=== PATIENT | female | born 1990 | race Caucasian/White ===

== ENCOUNTER 2017-02-25 17:30 | Emergency (ER) | payer MEDICAID ==
--- NOTE | 2017-02-25 18:08 | Emergency Department Record ---
History of Present Illness - General Chief complaint: Extremity Problem Stated complaint: POSS BROKEN KNUCKLE (LT HAND) Time Seen by Provider: 02/25/17 17:54 Source: Patient Mode of Arrival: Ambulatory Limitations: No limitations - History of Present Illness Initial comments: 26 yo female presents with left hand pain. The hand/finger was pulled backward injuring her ring finger. No deformity. She is left handed. No break in the skin. MD Complaint: Extremity pain, Joint pain Onset/Timin -: Minutes(s) Location: Left, Hand History of Same: No Radiation: Proximal, Distal Severity scale (1-10): 8 Quality: Aching Consistency: Constant Improves with: Rest Worsens with: Exertion, Palpation - Related Data Home Medications Medication Instructions Recorded Confirmed Last Taken Aripiprazole [Abilify] 10 mg PO DAILY 03/02/16 02/25/17 1 Day Ago ~02/24/17 Citalopram Hydrobromide [Celexa] 40 mg PO DAILY 03/02/16 02/25/17 1 Day Ago ~02/24/17 Allergies Allergy/AdvReac Type Severity Reaction Status Date / Time aspirin Allergy Severe NAUSEA AND Verified 02/25/17 17:52 VOMITING Travel Screening - Travel/Exposure Within Last 30 Days Have you traveled within the last 30 days?: No - Travel/Exposure Within Last Year Have you traveled outside the [place] in the last year?: No - Additonal Travel Details Have you been exposed to anyone with a communicable illness?: No - Travel Symptoms Symptom Screening: None Review of Systems Constitutional: Denies: Chills, Fever, Malaise, Weakness Eyes: Denies: Eye discharge ENT: Denies: Congestion, Throat pain Respiratory: Denies: Cough Cardiovascular: Denies: Chest pain, Syncope Endocrine: Denies: Fatigue Gastrointestinal: Denies: Abdominal pain, Diarrhea, Nausea, Vomiting Genitourinary: Denies: Dysuria Musculoskeletal: Reports: As per HPI, Arthralgia Skin: Reports: Bruising Neurological: Denies: Headache Psychiatric: Denies: Anxiety Hematological/Lymphatic: Denies: Easy bleeding, Easy bruising, Swollen glands Past Medical History - SOCIAL HISTORY Smoking Status: Current every day smoker Alcohol Use: Occasional Drug Use: None - RESPIRATORY Hx Respiratory Disorders: Yes Hx Asthma: Yes - CARDIOVASCULAR Hx Cardio Disorders: Yes Hx Hypotension: Yes - NEURO Hx Neuro Disorders: Yes Hx Seizures: Yes - GI Hx GI Disorders: No - Hx Genitourinary Disorders: No - ENDOCRINE Hx Endocrine Disorders: No Hx Thyroid Disease: No Comment:: hypoglycemic - MUSCULOSKELETAL Hx Musculoskeletal Disorders: No - PSYCH Hx Psych Problems: Yes Hx Anxiety: Yes Hx Behavior Problems: Yes (borderline personality disorder) Hx Depression: Yes - HEMATOLOGY/ONCOLOGY Hx Hematology/Oncology Disorders: No Family Medical History Any Significant Family History?: Yes Hx Cancer: Mother, Grandparents Hx Heart Disease: Grandparents Physical Exam - General General Appearance: Alert, Oriented x3, Cooperative, No acute distress Limitations: No limitations - Head Head exam: Atraumatic, Normal inspection - Eye Eye exam: Normal appearance - ENT ENT exam: Normal exam Ear exam: Normal external inspection Nasal Exam: Normal inspection - Neck Neck exam: Normal inspection - Cardiovascular Cardiovascular Exam: Regular rate, Normal rhythm, Normal heart sounds Peripheral Pulses: 2+: Radial (L) - Rectal Rectal exam: Deferred - exam: Deferred - Extremities Extremities exam: Joint swelling, Normal capillary refill, Tenderness. negative : Normal inspection (bruising over the 4th digit proximal), Full ROM (limited ring finger due to pain) Image of Hand: 1 - tender, faint bruising - Neurological Neurological exam: Alert, Oriented X3 - Psychiatric Psychiatric exam: Normal affect, Normal mood - Skin Skin exam: Dry, Intact, Normal color, Warm Course Vital Signs 02/25/17 17:47 Temperature 97.5 F L Pulse Rate 71 Respiratory 16 Rate Blood Pressure 110/58 Pulse Ox 100 - Reevaluation(s) Reevaluation #1: 02/25/17 18:23 The L hand XR was reviewed The patient was informed She was provided a splint and given instructions for home care and follow up Disposition Disposition: Discharge Clinical Impression: Strain of finger of left hand Disposition: Home, Self-Care Condition: (1) Good Instructions: Hand Sprain (ED) Additional Instructions: Use the splint for support and comfort Follow up with your doctor in a week if any pain continues Ice to minimize swelling Forms: Patient Portal Access Time of Disposition: 18:34 Quality - Quality Measures Quality Measures: N/A - Blood Pressure Screening View Details: Yes Blood Pressure Classification: Normal BP Reading Systolic Measurement: 110 Diastolic Measurement: 58 Screening for High Blood Pressure: < Normal BP, F/U Not Required > [G8783] Normal BP Follow-up Interventions: No follow-up required
[2017-02-25] MEDS: IBUPROFEN 600 MG TABLET PO ONE (18:24)
--- NOTE | 2017-02-26 14:34 | RADIOLOGY REPORT ---
EXAM: LEFT HAND HISTORY: INJURY. TECHNIQUE: Three views of the left hand were obtained. Comparison: None. FINDINGS: Negative for fracture or dislocation. The soft tissues are unremarkable. The joint spaces are preserved. IMPRESSION: NEGATIVE LEFT HAND EXAMINATION. JOB NUMBER: [id number] MTDD
== END 2017-02-25 18:40 | disposition home or self-care (01) ==
LOC: ER 17:30
DX: S63.615A Unspecified sprain of left ring finger, initial encounter (principal); X50.0XXA Overexertion from strenuous movement or load, initial encounter
CPT/HCPCS: 99283

== ENCOUNTER 2017-03-12 19:16 | Emergency (ER) | payer MEDICAID ==
--- NOTE | 2017-03-12 19:25 | Emergency Department Record ---
History of Present Illness - General Chief Complaint: Headache Migraine Stated Complaint: TORRES Time Seen by Provider: 03/12/17 19:19 Source: Patient Mode of Arrival: Ambulatory Limitations: No limitations - History of Present Illness Initial Comments: 26 yo female presents with a headache for three days. She reports headaches similar over the last year. The onset is typically gradual with some light and noise sensitivity. No current vomiting. No vision changes, speech changes, coordination changes, memory changes, numbness/tingling. She has been seeing her doctor for possible migraines. No sudden or maximal at onset. MD Complaint: Headache -: Days(s) (3) Onset Description: Gradual Location: Frontal Severity: Moderate Quality: Aching Consistency: Intermittent Improves With: Nothing Worsens With: Light, Noise Associated Symptoms: Nausea, Photophobia Treatments Prior to Arrival: Acetaminophen, Ibuprofen - Symptoms of Stroke Baseline State: Baseline State - Related Data Home Medications Medication Instructions Recorded Confirmed Last Taken Aripiprazole [Abilify] 10 mg PO DAILY 03/02/16 03/12/17 1 Day Ago ~02/24/17 Citalopram Hydrobromide [Celexa] 40 mg PO DAILY 03/02/16 03/12/17 1 Day Ago ~02/24/17 Allergies Allergy/AdvReac Type Severity Reaction Status Date / Time aspirin Allergy Severe NAUSEA AND Verified 02/25/17 17:52 VOMITING Review of Systems Constitutional: Denies: Chills, Fever, Malaise, Weakness Eyes: Denies: Eye discharge ENT: Denies: Congestion, Throat pain Respiratory: Denies: Cough Cardiovascular: Reports: Syncope (History of in the past, none recently). Denies: Chest pain Endocrine: Denies: Fatigue Gastrointestinal: Reports: Nausea. Denies: Abdominal pain, Diarrhea, Vomiting Genitourinary: Denies: Dysuria, Urgency Musculoskeletal: Denies: Arthralgia, Back pain, Myalgia, Neck pain Skin: Denies: Bruising, Change in color, Rash Neurological: Reports: As per HPI, Headache. Denies: Abnormal gait, Confusion, Numbness, Paresthesias, Tingling, Tremors, Vertigo, Weakness Psychiatric: Reports: Anxiety Hematological/Lymphatic: Denies: Blood Clots, Easy bleeding, Easy bruising, Swollen glands Past Medical History - SOCIAL HISTORY Smoking Status: Current every day smoker Drug Use: None - RESPIRATORY Hx Respiratory Disorders: Yes Hx Asthma: Yes - CARDIOVASCULAR Hx Cardio Disorders: Yes Hx Hypotension: Yes - NEURO Hx Neuro Disorders: Yes Hx Seizures: Yes - GI Hx GI Disorders: No - Hx Genitourinary Disorders: No - ENDOCRINE Hx Endocrine Disorders: No Hx Thyroid Disease: No Comment:: hypoglycemic - MUSCULOSKELETAL Hx Musculoskeletal Disorders: No - PSYCH Hx Psych Problems: Yes Hx Anxiety: Yes Hx Behavior Problems: Yes (borderline personality disorder) Hx Depression: Yes - HEMATOLOGY/ONCOLOGY Hx Hematology/Oncology Disorders: No Family Medical History Hx Cancer: Mother, Grandparents Hx Heart Disease: Grandparents Physical Exam - General General Appearance: Alert, Oriented x3, Cooperative, No acute distress Limitations: No limitations - Head Head exam: Atraumatic, Normocephalic, Normal inspection Head exam detail: negative: Abrasion, Contusion, Hematoma - Eye Eye exam: Normal appearance, PERRL, EOMI. negative: Conjunctival injection, Nystagmus, Periorbital swelling Pupils: Normal accommodation. negative: Irregular, Unequal - ENT ENT exam: Normal exam, Mucous membranes moist Ear exam: Normal external inspection Nasal Exam: Normal inspection Mouth exam: Normal external inspection Teeth exam: Normal inspection Throat exam: Normal inspection. negative: Tonsillar erythema, Tonsillomegaly, Tonsillar exudate, R peritonsillar mass, L peritonsillar mass - Neck Neck exam: Normal inspection, Full ROM. negative: Lymphadenopathy, Meningismus , Tenderness, Thyromegaly - Respiratory Respiratory exam: Normal lung sounds bilaterally. negative: Prolonged expiratory, Respiratory distress, Rhonchi, Stridor - Cardiovascular Cardiovascular Exam: Regular rate, Normal rhythm, Normal heart sounds Peripheral Pulses: 2+: Radial (R), Radial (L) - GI/Abdominal GI/Abdominal exam: Soft. negative: Tenderness - Rectal Rectal exam: Deferred - exam: Deferred - Extremities Extremities exam: Normal inspection, Full ROM, Normal capillary refill. negative: Pedal edema, Tenderness - Back Back exam: Reports: Normal inspection, Full ROM. Denies: CVA tenderness (R), CVA tenderness (L), Muscle spasm, Rash noted, Tenderness - Neurological Neurological exam: Alert, CN II-XII intact, Normal gait, Oriented X3, Reflexes normal, Other (Normal FTN, Normal PND upper and lower extremities). negative: Abnormal gait, Altered, Motor sensory deficit - Psychiatric Psychiatric exam: Normal affect, Normal mood - Skin Skin exam: Dry, Intact, Normal color, Warm Course Vital Signs 03/12/17 19:21 Temperature 99.1 F Pulse Rate [ 87 Pulse Ox Probe] Respiratory 20 Rate Blood Pressure 115/49 [Left Arm] Pulse Ox 99 - Reevaluation(s) Reevaluation #1: The neuro examination is normal as tested Similar to prior headaches with features typical of migraine The patient is being followed by her PCP with further follow up scheduled Friday03/12/17 19:45 Reevaluation #2: The headache is completely gone She feels a littel jittery from the Reglan I offered additional Benadryl She declined I explained that she may benefit from an oral dose at home She was reassured the sensation will wear off and she can return at any time if the jittery feeling persists. Her headache is 0/10 at this time. 03/12/17 20:08 Disposition Disposition: Discharge Clinical Impression: Headache Qualifiers: Headache type: unspecified Headache chronicity pattern: acute headache Intractability: not intractable Qualified Code(s): R51 - Headache Disposition: Home, Self-Care Condition: (1) Good Instructions: Migraine Headache (ED), Acute Headache (ED) Additional Instructions: Follow up with Dr Simmons as schedules Rest and stay well hydrated Return if you have any return or symptoms or any new features to your headaches Forms: Patient Portal Access Time of Disposition: 20:08 Quality - Quality Measures Quality Measures: N/A - Blood Pressure Screening View Details: Yes Does Patient Have Any of the Following: No Blood Pressure Classification: Normal BP Reading Systolic Measurement: 114 Diastolic Measurement: 69 Screening for High Blood Pressure: < Normal BP, F/U Not Required > [G8783]
[2017-03-12] MEDS ORDERED: HYDROCODONE/APAP 5/325MG TABLET PO ONE (19:32)
[2017-03-12] MEDS: 0.9 % SODIUM CHLORIDE 1,000 ML BAG IV ONE (19:53)
[2017-03-12] MEDS: DIPHENHYDRAMINE HCL IV 50 MG/ML VIAL IVP ONE (19:54)
[2017-03-12] MEDS: METOCLOPRAMIDE HCL 10 MG/2 ML VIAL IVP ONE (19:54)
[2017-03-12] MEDS: KETOROLAC 30 MG/ML VIAL IVP ONE (19:54)
== END 2017-03-12 20:10 | disposition home or self-care (01) ==
LOC: ER 19:16
DX: R51 Headache (principal); H53.149 Visual discomfort, unspecified; R11.0 Nausea
CPT/HCPCS: 99284 ×2; 96374; 96375; J1885; J1200; J2765; J7030

== ENCOUNTER 2018-01-11 03:45 | Emergency (ER) | payer MEDICAID ==
--- NOTE | 2018-01-11 03:49 | Emergency Department Record ---
History of Present Illness - General Chief Complaint: Neck Injury/Pain Stated Complaint: NECK PAIN Source: Patient - History of Present Illness Initial Comments: The patient states that she slept wrong on her neck last night and now it hurts on the right side, down to the top of her shoulder. She denies injury or trauma of any kind. She states this has happened in the past but it has usually resolved throughout the day. Tonight the ultram she took didn't help so she came here for pain control. Patient has had a tubal ligation. Her LMP began 10 days ago and ended 4 days ago. Complaint: Neck pain - Related Data Home Medications Medication Instructions Recorded Confirmed Last Taken Ranitidine HCl [Zantac] 150 mg PO TID 01/11/18 01/11/18 Unknown Previous Rx's Medication Instructions Recorded Cyclobenzaprine HCl [Flexeril] 10 mg PO TID #14 tablet 01/11/18 Allergies Allergy/AdvReac Type Severity Reaction Status Date / Time aspirin Allergy Severe NAUSEA AND Verified 01/11/18 03:49 VOMITING Review of Systems Reviewed: No additional complaints except as noted below Constitutional: Reports: As per HPI. Denies: Chills, Fever, Malaise, Night sweats, Weakness, Weight change Eyes: Reports: As per HPI. Denies: Eye discharge, Eye pain, Photophobia, Vision change ENT: Reports: As per HPI. Denies: Congestion, Dental pain, Ear pain, Epistaxis , Hearing loss, Throat pain Respiratory: Reports: As per HPI. Denies: Cough, Dyspnea, Hemoptysis, Stridor, Wheezes Cardiovascular: Reports: As per HPI. Denies: Arrhythmia, Chest pain, Dyspnea on exertion, Edema, Murmurs, Orthopnea, Palpitations, Paroxysmal nocturnal dyspnea, Rheumatic Fever, Syncope Endocrine: Reports: As per HPI. Denies: Fatigue, Heat or cold intolerance, Polydipsia, Polyuria Gastrointestinal: Reports: As per HPI. Denies: Abdominal pain, Constipation, Diarrhea, Hematemesis, Hematochezia, Melena, Nausea, Vomiting Genitourinary: Reports: As per HPI. Denies: Abnormal menses, Discharge, Dyspareunia, Dysuria, Frequency, Hematuria, Incontinence, Retention, Urgency Musculoskeletal: Reports: As per HPI. Denies: Arthralgia, Back pain, Gout, Joint swelling, Myalgia, Neck pain Skin: Reports: As per HPI. Denies: Bruising, Change in color, Change in hair/ nails, Lesions, Pruritus, Rash Neurological: Reports: As per HPI. Denies: Abnormal gait, Confusion, Headache, Numbness, Paresthesias, Seizure, Tingling, Tremors, Vertigo, Weakness Psychiatric: Reports: As per HPI. Denies: Anxiety, Auditory hallucinations, Depression, Homicidal thoughts, Suicidal thoughts, Visual hallucinations Hematological/Lymphatic: Reports: As per HPI. Denies: Anemia, Blood Clots, Easy bleeding, Easy bruising, Swollen glands Past Medical History - SOCIAL HISTORY Smoking Status: Current every day smoker Drug Use: None - RESPIRATORY Hx Respiratory Disorders: Yes Hx Asthma: Yes - CARDIOVASCULAR Hx Cardio Disorders: Yes Hx Hypotension: Yes - NEURO Hx Neuro Disorders: Yes Hx Seizures: Yes - GI Hx GI Disorders: No - Hx Genitourinary Disorders: No - ENDOCRINE Hx Endocrine Disorders: No Hx Thyroid Disease: No Comment:: hypoglycemic - MUSCULOSKELETAL Hx Musculoskeletal Disorders: No - PSYCH Hx Psych Problems: Yes Hx Anxiety: Yes Hx Behavior Problems: Yes (borderline personality disorder) Hx Depression: Yes - HEMATOLOGY/ONCOLOGY Hx Hematology/Oncology Disorders: No Family Medical History Hx Cancer: Mother, Grandparents Hx Heart Disease: Grandparents Physical Exam - General General Appearance: Alert, Oriented x3, Cooperative, Moderate distress - Head Head exam: Normal inspection - Eye Eye exam: Normal appearance, PERRL Pupils: Normal accommodation - ENT ENT exam: Normal exam, Mucous membranes moist, Normal external ear exam, Normal orophraynx, TM's normal bilaterally Ear exam: Normal external inspection. negative: External canal tenderness Nasal Exam: Normal inspection. negative: Discharge, Sinus tenderness Mouth exam: Normal external inspection, Tongue normal Teeth exam: Normal inspection. negative: Dental caries Throat exam: Normal inspection. negative: Tonsillar erythema, Tonsillar exudate - Neck Neck exam: Normal inspection, Tenderness (tender muscle spasm to right paracervical, trapezius, flexion intact, lateral motion is painful. No bony tenderness on palpation posteriorly.). negative: Lymphadenopathy, Meningismus - Respiratory Respiratory exam: Normal lung sounds bilaterally. negative: Respiratory distress - Cardiovascular Cardiovascular Exam: Regular rate, Normal rhythm, Normal heart sounds - GI/Abdominal GI/Abdominal exam: Soft, Normal bowel sounds. negative: Tenderness - Rectal Rectal exam: Deferred - exam: Deferred - Extremities Extremities exam: Normal inspection, Full ROM, Normal capillary refill. negative: Tenderness - Back Back exam: Reports: Normal inspection, Full ROM. Denies: Muscle spasm, Rash noted, Tenderness - Neurological Neurological exam: Alert, CN II-XII intact, Normal gait, Oriented X3, Reflexes normal, Other (motor strength to upper extremities equal bilaterally with 2+ equal reflexes bilaterally). negative: Motor sensory deficit - Psychiatric Psychiatric exam: Normal affect, Normal mood - Skin Skin exam: Dry, Intact, Normal color, Warm Course - Reevaluation(s) Reevaluation #1: The patient is feeling much better but is not pain free. 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 She states she will go to her PCP who is a DO and can perform manipulation on her neck. 01/11/18 05:03 Medical Decision Making - Management Options MDM Management: No Additional Work-up Planned Disposition Disposition: Discharge Clinical Impression: Cervical paraspinous muscle spasm Disposition: Home, Self-Care Return To Work/School Note Provided: Yes Instructions: Spasmodic Torticollis (ED), Neck Pain (ED) Additional Instructions: No lifting with arms. Flexeril as directed. Massage followed by gentle ROM three or more times daily. Follow up with PCP this week for recheck. Prescriptions: Cyclobenzaprine HCl [Flexeril] 10 mg PO TID #14 tablet Forms: Patient Portal Access Quality - Quality Measures Quality Measures: N/A - Blood Pressure Screening Does Patient Have Any of the Following: No Blood Pressure Classification: Normal BP Reading Systolic Measurement: 111 Diastolic Measurement: 58 Screening for High Blood Pressure: < Normal BP, F/U Not Required > [G8783]
[2018-01-11] MEDS: KETOROLAC 30 MG/ML VIAL IM ONE (04:06)
[2018-01-11] MEDS: ORPHENADRINE CITRATE 60MG/2ML VIAL IM ONE (04:06)
== END 2018-01-11 05:15 | disposition home or self-care (01) ==
LOC: ER 03:45
DX: G24.3 Spasmodic torticollis (principal); F17.210 Nicotine dependence, cigarettes, uncomplicated; F60.3 Borderline personality disorder; M62.838 Other muscle spasm
CPT/HCPCS: 96372; 99283; J1885; J2360

== ENCOUNTER 2018-10-09 18:40 | Emergency (ER) | payer MEDICAID ==
[2018-10-09] MEDS ORDERED: IBUPROFEN 600 MG TABLET PO ONE (18:54)
--- NOTE | 2018-10-09 19:00 | Emergency Department Record ---
History of Present Illness - General Chief complaint: Lower Extremity Pain Stated complaint: INJURY TO RT LEG Time Seen by Provider: 10/09/18 18:54 Source: Patient Mode of Arrival: Ambulatory Limitations: No limitations - History of Present Illness Initial comments: 28 yo female presents to ED for evaluation following an injury to the right lower leg. Patient reports that she was unloading a washer from a truck that slipped and fell off the truck striking the patient in the proximal 1/3rd of the right lower leg. Patient denies other injury on examination, has not taken anything prior to arrival, and denies health problems at her baseline. Patient denies injury to the knee or to from the ankle distally. MD Complaint: Extremity pain Onset/Timin -: Minutes(s) Location: Right, Lower Leg History of Same: No Severity scale (1-10): 8 Quality: Aching Consistency: Constant Improves with: Nothing Worsens with: Nothing - Related Data Allergies Allergy/AdvReac Type Severity Reaction Status Date / Time aspirin Allergy Severe NAUSEA AND Verified 10/09/18 18:55 VOMITING adhesive tape Allergy RASH Verified 10/09/18 18:55 Travel Screening - Travel/Exposure Within Last 30 Days Have you traveled within the last 30 days?: No - Travel/Exposure Within Last Year Have you traveled outside the [place] in the last year?: No - Additonal Travel Details Have you been exposed to anyone with a communicable illness?: No - Travel Symptoms Symptom Screening: None Review of Systems Constitutional: Denies: Chills, Fever, Malaise, Night sweats Eyes: Denies: Eye discharge, Eye pain ENT: Denies: Congestion, Ear pain, Epistaxis Respiratory: Denies: Cough, Dyspnea Cardiovascular: Denies: Chest pain, Dyspnea on exertion Endocrine: Denies: Fatigue, Heat or cold intolerance Gastrointestinal: Denies: Abdominal pain, Nausea, Vomiting Genitourinary: Denies: Incontinence, Retention Musculoskeletal: Reports: Arthralgia. Denies: Back pain, Gout, Joint swelling Skin: Reports: Bruising. Denies: Change in color, Change in hair/nails Neurological: Denies: Abnormal gait, Confusion, Headache, Seizure Psychiatric: Denies: Anxiety Hematological/Lymphatic: Denies: Anemia, Blood Clots Past Medical History - SOCIAL HISTORY Smoking Status: Current every day smoker Alcohol Use: None Drug Use: None - RESPIRATORY Hx Respiratory Disorders: Yes Hx Asthma: Yes - CARDIOVASCULAR Hx Cardio Disorders: Yes Hx Hypotension: Yes (when ) - NEURO Hx Neuro Disorders: Yes Hx Seizures: Yes - GI Hx GI Disorders: No - Hx Genitourinary Disorders: No - ENDOCRINE Hx Endocrine Disorders: No Hx Thyroid Disease: No Comment:: hypoglycemic with - MUSCULOSKELETAL Hx Musculoskeletal Disorders: No - PSYCH Hx Psych Problems: Yes Hx Anxiety: Yes Hx Behavior Problems: Yes (borderline personality disorder) Hx Depression: Yes - HEMATOLOGY/ONCOLOGY Hx Hematology/Oncology Disorders: No Family Medical History Any Significant Family History?: No Hx Cancer: Mother, Grandparents Hx Heart Disease: Grandparents Physical Exam - General General Appearance: Alert, Oriented x3, Cooperative, Moderate distress Limitations: No limitations - Head Head exam: Atraumatic, Normocephalic, Normal inspection Head exam detail: negative: Abrasion, Contusion, Recinos's sign, General tenderness, Hematoma, Laceration - Eye Eye exam: Normal appearance. negative: Conjunctival injection, Periorbital swelling, Periorbital tenderness, Scleral icterus - ENT Ear exam: negative: Auricular hematoma, Auricular trauma Nasal Exam: negative: Active bleeding, Discharge, Dried blood, Foreign body Mouth exam: negative: Drooling, Laceration, Muffled voice, Tongue elevation - Neck Neck exam: Normal inspection. negative: Meningismus, Tenderness - Respiratory Respiratory exam: Normal lung sounds bilaterally. negative: Rales, Respiratory distress, Rhonchi, Stridor - Cardiovascular Cardiovascular Exam: Regular rate, Normal rhythm, Normal heart sounds - GI/Abdominal GI/Abdominal exam: Soft. negative: Rebound, Rigid, Tenderness - Rectal Rectal exam: Deferred - exam: Deferred - Extremities Extremities exam: Tenderness, Other (STS and ecchymosis to the proximal 1/3rd of the anterior tibia, strong distal pulse is present, cap refil <2 seconds, no evidence for injury to the knee or the ankle distally on examination.). negative: Calf tenderness, Pedal edema - Back Back exam: Denies: CVA tenderness (R), CVA tenderness (L) - Neurological Neurological exam: Alert, Normal gait, Oriented X3 - Psychiatric Psychiatric exam: Normal affect, Normal mood - Skin Skin exam: Normal color. negative: Abrasion Type of lesion: negative: abrasion Course Vital Signs 10/09/18 18:46 Temperature 98.4 F Pulse Rate 82 Respiratory 20 Rate Blood Pressure 127/70 Pulse Ox 99 - Reevaluation(s) Reevaluation #1: 10/09/18 19:01 Nursing notes reviewed and are appreciated, no appreciable temperature difference is present on examination between the right and left lower extremities. Cap refill < 2 seconds, strong DPP present on examination, compartment of the lower extremity are soft on examination. Reevaluation #2: 10/09/18 19:15 Right lower extremity: No acute fracture identified Mild STS anterior tibial region Patient was updated on her radiograph results, appears stable for discharge with symptomatic treatment as directed. Disposition Disposition: Discharge Clinical Impression: Contusion, lower leg Qualifiers: Encounter type: initial encounter Laterality: left Qualified Code(s): S80.12XA - Contusion of left lower leg, initial encounter Disposition: Home, Self-Care Condition: (2) Stable Instructions: Contusion in Adults (ED) Additional Instructions: Return to ED if your symptoms worsen or if you have any concerns. Ice, Ibuprofen as directed. Follow-up with your family doctor in 3-5 days as directed. Time of Disposition: 19:16 Quality - Quality Measures Quality Measures: N/A - Blood Pressure Screening Does Patient Have Any of the Following: No Blood Pressure Classification: Pre-Hypertensive BP Reading Systolic Measurement: 127 Diastolic Measurement: 70 Screening for High Blood Pressure: < Pre-Hypertensive BP, F/U Documented > [ G8950] Pre-Hypertensive Follow-up Interventions: Referral to alternative/primary care provider.
--- NOTE | 2018-10-12 19:36 | RADIOLOGY REPORT ---
EXAM: LOWER LEG, RIGHT HISTORY: INJURY TO RIGHT LEG. TECHNIQUE: Two views of the right lower leg are obtained. FINDINGS: There is no evidence of fracture, dislocation, periosteal reaction, or foreign body. IMPRESSION: NEGATIVE. JOB NUMBER: [id number]
== END 2018-10-09 19:25 | disposition home or self-care (01) ==
LOC: ER 18:40
DX: S80.12XA Contusion of left lower leg, initial encounter (principal); W22.8XXA Striking against or struck by other objects, initial encounter; F17.210 Nicotine dependence, cigarettes, uncomplicated
CPT/HCPCS: 99283